=== PATIENT | female | born 1955 | race Caucasian/White ===

== ENCOUNTER 2016-10-23 23:45 | Emergency (ER) | payer OTHER ==
[~2016-10-23] VITALS: Ht 165.1 cm; Wt 84.8 kg
[~2016-10-23 23:45] MED LIST: HYDR-971 PO; IBUP800T19 PO; NAPR500T3 PO; VALA500T PO
[2016-10-24] MEDS ORDERED: KETOROLAC 15 MG/ML VIAL. IV ONE (01:00)
[2016-10-24] MEDS ORDERED: HYDROmorphone PF 1 MG/ML DISP.SYRIN IV ONE (01:00)
[2016-10-24] MEDS ORDERED: IV NORMAL SALINE 1,000ML 1,000 ML IV ONE (01:00)
[2016-10-24] MEDS ORDERED: ONDANSETRON PF 4 MG/2 ML VIAL. IV ONE (01:00)
--- NOTE | 2016-10-24 01:29 | RAD ---
INDICATION: Abdomen pain. COMPARISON: None TECHNIQUE: Axial CT images obtained through the abdomen and pelvis. Intravenous contrast was not utilized. One or more of the following individualized dose reduction techniques were utilized for this examination: 1. Automated exposure control; 2. Adjustment of the mA and/or kV according to patient size; 3. Use of iterative reconstruction technique. FINDINGS: Elevated left hemidiaphragm. Abdominal aorta not aneurysmal. Mild calcific atherosclerosis. No intrahepatic bile duct dilation. No peripancreatic edema. Spleen unremarkable. No hydronephrosis. Lobulated appearance of left kidney. No definite evidence of small bowel obstruction. Bladder unremarkable within limits of CT. Colonic diverticulosis. There is a region of lack of distension of the colon near splenic flexure with prominence of wall. Appendix not well seen. Degenerative changes spine. Grade 1 anterolisthesis of L4 on 5. IMPRESSION: No evidence of bowel obstruction or hydronephrosis. There is a region of lack of distension of the colon near splenic flexure as well as descending colon. Could be secondary to lack of distention but given the possible regional wall thickening near splenic flexure may be helpful to obtain a follow-up examination to ensure that this does not increase to exclude a pathologic cause of wall thickening such as colitis, stricture or lesion in the area. Elevated left hemidiaphragm. Electronically signed by: Clayton Barragan (October 24, 2016 01:27:25)
[2016-10-24 01:54] LABS: BASO % 1 % (0-3); EOS # 0.1 x10^3/uL (0.0-0.7); EOS % 1 % (0-3); HEMATOCRIT 43.1 % (36.0-47.0); HEMOGLOBIN 14.5 g/dL (12.0-15.5); LYMPH % 12 % (24-48); MEAN CORPUSCULAR HEMOGLOBIN 30 pg (25-35); MEAN CORPUSCULAR HGB CONC 34 g/dL (31-37); MEAN CORPUSCULAR VOLUME 90 fL (79-100); MONO # 0.4 x10^3/uL (0.0-1.1); MONO % 4 % (0-9); NEUT # 6.7 x10^3uL (1.8-7.7); NEUT % 82 % (31-73); PLATELET COUNT 214 x10^3/uL (140-400); RED BLOOD COUNT 4.79 x10^6/uL (3.50-5.40); WHITE BLOOD COUNT 8.1 x10^3/uL (4.0-11.0)
[2016-10-24 02:18] LABS: BILIRUBIN,URINE NEG (NEG); CLARITY,URINE HAZY; COLOR,URINE YELLOW; GLUCOSE,URINE NEG (NEG)
[2016-10-24 02:19] LABS: BACTERIA,URINE MANY /HPF (0-FEW); NITRITE,URINE NEG (NEG); SQUAMOUS EPITHELIAL CELL,UR FEW /LPF; UROBILINOGEN,URINE 0.2 mg/dL (0.2 mg/dL)
[2016-10-24 02:53] LABS: ALBUMIN 4.3 g/dL (3.4-5.0); ALBUMIN/GLOBULIN RATIO 1.3 (1.0-1.7); CALCIUM 9.5 mg/dL (8.5-10.1); GFR 56.4; POTASSIUM 3.9 mmol/L (3.5-5.1); TOTAL BILIRUBIN 0.3 mg/dL (0.2-1.0); TOTAL PROTEIN 7.5 g/dL (6.4-8.2)
[2016-10-24] MEDS ORDERED: HYDR-971 PO (03:04)
[2016-10-24] MEDS ORDERED: ONDA4TAB10 SL (03:04)
--- NOTE | 2016-10-24 03:04 | PHYS DOC ---
Past History Past Medical History: Other Past Surgical History: Hysterectomy, Tonsillectomy, Other Alcohol Use: Occasionally Drug Use: None Adult General Chief Complaint Chief Complaint: ABDOMINAL PAIN HPI HPI Patient is a 61-year-old female who presents here today complaining of right flank and right lower quadrant pain that started earlier this evening. Patient reports that it started on slightly and over the course of the evening is been getting worse and worse to the point now where she is unable to tolerated. Patient denies any a dysuria frequency urgency. Denies any fevers shakes chills. Denies any cough cold runny nose. Patient denies any chest pain or shortness of breath. Patient denies any hematuria. Patient denies any diarrhea. Patient reports that she feels nauseous and has thrown up with the pain. Patient reports she is unable to sit still with the pain. Never had any kidney stones in the past. Patient's physical exam is significant for tenderness to palpation to her right flank and right lower quadrant. Patient had no rebound or guarding. Patient has no psoas or obturator signs. Patient does not present with any signs or symptoms of be consistent with an acute surgical abdomen. Patient's ER workup was significant for labs were unremarkable. Patient had a normal CBC and chemistry. Patient's UA was unremarkable. Patient had a CT scan of her abdomen and pelvis looking for kidney stones patient's CT scan of her abdomen and pelvis did not show any acute pathology. There was no evidence of bowel obstruction or hydronephrosis. There is a region of lack of distention of the colon and splenic flexure as well as the descending colon. This could be secondary to lack of distention but given the possible regional wall thickening of the splenic flexure may be helpful to obtain a follow-up examination to ensure that does not increase to exclude a pathologic cause of wall thickening such as colitis stricture or lesion the area. Assessment and plan Abdominal pain of unclear etiology. Patient had an unremarkable CT scan. The results of the CT scan were discussed with the patient and the recommendation a repeat CT scan as an outpatient through her primary care physician was discussed with her. Patient is currently feeling much more comfortable. Patient be discharged home with antiemetics and pain medicines to assist her and she will see her family doctor within the week. Review of Systems Review of Systems Constitutional: Denies fever or chills [] Eyes: Denies change in visual acuity, redness, or eye pain [] HENT: Denies nasal congestion or sore throat [] All other review systems are negative except as documented in the history of present illness portion. Current Medications Current Medications Current Medications Medications (Trade) Dose Ordered Sig/[place] Start Time Stop Time Status Last Admin Dose Admin Hydromorphone HCl (Dilaudid) 1 mg 1X ONCE 10/24/16 01:00 10/24/16 01:01 DC 10/24/16 01:10 1 MG Ketorolac Tromethamine (Toradol) 15 mg 1X ONCE 10/24/16 01:00 10/24/16 01:01 DC 10/24/16 01:11 15 MG Ondansetron HCl (Zofran) 4 mg 1X ONCE 10/24/16 01:00 10/24/16 01:01 DC 10/24/16 01:10 4 MG Sodium Chloride 1,000 ml @ 1,000 mls/hr 1X ONCE 10/24/16 01:00 10/24/16 01:59 DC 10/24/16 01:11 1,000 MLS/HR Allergies Allergies Allergies Coded Allergies Type Severity Reaction Last Updated Verified No Known Drug Allergies 04/08/15 No Physical Exam Physical Exam Constitutional: Well developed, well nourished, no acute distress, non-toxic appearance. [] HENT: Normocephalic, atraumatic, bilateral external ears normal, oropharynx moist, no oral exudates, nose normal. [] Eyes: PERRLA, EOMI, conjunctiva normal, no discharge. [] Neck: Normal range of motion, no tenderness, supple, no stridor. [] Cardiovascular:Heart rate regular rhythm, no murmur [] Lungs & Thorax: Bilateral breath sounds clear to auscultation [] Abdomen: Bowel sounds normal, soft, tenderness to palpation her right flank as well as right lower quadrant. No rebound or guarding. No masses, no pulsatile masses. [] Skin: Warm, dry, no erythema, no rash. [] Back: See above Extremities: No tenderness, no cyanosis, no clubbing, ROM intact, no edema. [] Neurologic: Alert and oriented X 3, normal motor function, normal sensory function, no focal deficits noted. [] Psychologic: Affect normal, judgement normal, mood normal. [] Current Patient Data Vital Signs Vital Signs Date Time Temp Pulse Resp B/P (MAP) Pulse Ox O2 Delivery O2 Flow Rate FiO2 10/23/16 23:50 97.5 58 20 99 Room Air Lab Results Laboratory Tests Test 10/24/16 01:10 White Blood Count 8.1 x10^3/uL Red Blood Count 4.79 x10^6/uL Hemoglobin 14.5 g/dL Hematocrit 43.1 % Mean Corpuscular Volume 90 fL Mean Corpuscular Hemoglobin 30 pg Mean Corpuscular Hemoglobin Concent 34 g/dL Red Cell Distribution Width 14.0 % Platelet Count 214 x10^3/uL Neutrophils (%) (Auto) 82 % Lymphocytes (%) (Auto) 12 % Monocytes (%) (Auto) 4 % Eosinophils (%) (Auto) 1 % Basophils (%) (Auto) 1 % Neutrophils # (Auto) 6.7 x10^3uL Lymphocytes # (Auto) 1.0 x10^3/uL Monocytes # (Auto) 0.4 x10^3/uL Eosinophils # (Auto) 0.1 x10^3/uL Basophils # (Auto) 0.0 x10^3/uL Urine Collection Type Unknown Urine Color Yellow Urine Clarity Hazy Urine pH 6.0 Urine Specific [place] 1.025 Urine Protein Neg Urine Glucose (UA) Neg mg/dL Urine Ketones (Stick) Neg mg/dL Urine Blood Trace Urine Nitrite Neg Urine Bilirubin Neg Urine Urobilinogen Dipstick 0.2 mg/dL Urine Leukocyte Esterase Neg Urine RBC 1-2 /HPF Urine WBC 1-4 /HPF Urine Squamous Epithelial Cells Few /LPF Urine Transitional Epithelial Cells Few /LPF Urine Bacteria Many /HPF Urine Mucus Slight /LPF Sodium Level 143 mmol/L Potassium Level 3.9 mmol/L Chloride Level 106 mmol/L Carbon Dioxide Level 25 mmol/L Anion Gap 12 Blood Urea Nitrogen 12 mg/dL Creatinine 1.0 mg/dL Estimated GFR (Cockcroft-Gault) 56.4 BUN/Creatinine Ratio 12 Glucose Level 136 mg/dL Calcium Level 9.5 mg/dL Total Bilirubin 0.3 mg/dL Aspartate Amino Transf (AST/SGOT) 23 U/L Alanine Aminotransferase (ALT/SGPT) 35 U/L Alkaline Phosphatase 71 U/L Total Protein 7.5 g/dL Albumin 4.3 g/dL Albumin/Globulin Ratio 1.3 Lipase 121 U/L Current Medications Medications (Trade) Dose Ordered Sig/[place] Route PRN Reason Start Time Stop Time Status Last Admin Dose Admin Sodium Chloride 1,000 ml @ 1,000 mls/hr 1X ONCE IV 10/24/16 01:00 10/24/16 01:59 DC 10/24/16 01:11 1,000 MLS/HR Ondansetron HCl (Zofran) 4 mg 1X ONCE IV 10/24/16 01:00 10/24/16 01:01 DC 10/24/16 01:10 4 MG Hydromorphone HCl (Dilaudid) 1 mg 1X ONCE IV 10/24/16 01:00 10/24/16 01:01 DC 10/24/16 01:10 1 MG Ketorolac Tromethamine (Toradol) 15 mg 1X ONCE IV 10/24/16 01:00 10/24/16 01:01 DC 10/24/16 01:11 15 MG Laboratory Tests Test 10/24/16 01:10 White Blood Count 8.1 x10^3/uL (4.0-11.0) Red Blood Count 4.79 x10^6/uL (3.50-5.40) Hemoglobin 14.5 g/dL (12.0-15.5) Hematocrit 43.1 % (36.0-47.0) Mean Corpuscular Volume 90 fL (79-100) Mean Corpuscular Hemoglobin 30 pg (25-35) Mean Corpuscular Hemoglobin Concent 34 g/dL (31-37) Red Cell Distribution Width 14.0 % (11.5-14.5) Platelet Count 214 x10^3/uL (140-400) Neutrophils (%) (Auto) 82 % (31-73) H Lymphocytes (%) (Auto) 12 % (24-48) L Monocytes (%) (Auto) 4 % (0-9) Eosinophils (%) (Auto) 1 % (0-3) Basophils (%) (Auto) 1 % (0-3) Neutrophils # (Auto) 6.7 x10^3uL (1.8-7.7) Lymphocytes # (Auto) 1.0 x10^3/uL (1.0-4.8) Monocytes # (Auto) 0.4 x10^3/uL (0.0-1.1) Eosinophils # (Auto) 0.1 x10^3/uL (0.0-0.7) Basophils # (Auto) 0.0 x10^3/uL (0.0-0.2) Urine Collection Type Unknown Urine Color Yellow Urine Clarity Hazy Urine pH 6.0 Urine Specific [place] 1.025 Urine Protein Neg (NEG-TRACE) Urine Glucose (UA) Neg mg/dL (NEG) Urine Ketones (Stick) Neg mg/dL (NEG) Urine Blood Trace (NEG) Urine Nitrite Neg (NEG) Urine Bilirubin Neg (NEG) Urine Urobilinogen Dipstick 0.2 mg/dL (0.2 mg/dL) Urine Leukocyte Esterase Neg (NEG) Urine RBC 1-2 /HPF (0-2) Urine WBC 1-4 /HPF (0-4) Urine Squamous Epithelial Cells Few /LPF Urine Transitional Epithelial Cells Few /LPF Urine Bacteria Many /HPF (0-FEW) Urine Mucus Slight /LPF Sodium Level 143 mmol/L (136-145) Potassium Level 3.9 mmol/L (3.5-5.1) Chloride Level 106 mmol/L (98-107) Carbon Dioxide Level 25 mmol/L (21-32) Anion Gap 12 (6-14) Blood Urea Nitrogen 12 mg/dL (7-20) Creatinine 1.0 mg/dL (0.6-1.0) Estimated GFR (Cockcroft-Gault) 56.4 BUN/Creatinine Ratio 12 (6-20) Glucose Level 136 mg/dL (70-99) H Calcium Level 9.5 mg/dL (8.5-10.1) Total Bilirubin 0.3 mg/dL (0.2-1.0) Aspartate Amino Transferase (AST) 23 U/L (15-37) Alanine Aminotransferase (ALT) 35 U/L (14-59) Alkaline Phosphatase 71 U/L (46-116) Total Protein 7.5 g/dL (6.4-8.2) Albumin 4.3 g/dL (3.4-5.0) Albumin/Globulin Ratio 1.3 (1.0-1.7) Lipase 121 U/L (73-393) EKG EKG [] Radiology/Procedures Radiology/Procedures [] Course & Med Decision Making Course & Med Decision Making Pertinent Labs and Imaging studies reviewed. (See chart for details) [] Dragon Disclaimer Dragon Disclaimer This chart was dictated in whole or in part using Voice Recognition software in a busy, high-work load, and often noisy Emergency Department environment. It may contain unintended and wholly unrecognized errors or omissions. Departure Departure: Impression: Primary Impression: Abdominal pain Disposition: 01 HOME, SELF-CARE Condition: IMPROVED Referrals: EVELYNE MCCALL DO (PCP) Patient Instructions: Abdominal Pain (Nonspecific) Additional Instructions: Please follow up with her family doctor for possible repeat CAT scan if your symptoms do not resolve. Scripts Ondansetron (ZOFRAN ODT) 4 Mg Tab.rapdis 1 TAB SL Q8HRS for NAUSEA, #15 TAB Prov: MIRIAM BARNARD MD 10/24/16 Hydrocodone Bit/Acetaminophen (NORCO 5-325 TABLET) 1 Each Tablet 1 TAB PO PRN Q6HRS Y for PAIN, #12 TAB 0 Refills Prov: MIRIAM BARNARD MD 10/24/16 MIRIAM BARNARD MD October 24, 2016 03:04
[2016-10-24] MEDS ORDERED: HYDROcodone/APAP 5/325MG 1 TAB TABLET PO ONE (03:30)
[2016-10-24 03:45] VITALS: BP 137/76
== END 2016-10-24 04:12 | disposition home or self-care (01) ==
LOC: ER 23:45
DX: R10.31 Right lower quadrant pain (principal); Z90.710 Acquired absence of both cervix and uterus
CPT/HCPCS: 36415; 74176; 80053; 81001; 83690; 85027; 87086; 96361; 96374; 96375; 99285; J1170; J1885; J2405; 87186; J7030

== ENCOUNTER 2017-07-07 10:40 | Emergency (ER) | payer OTHER ==
[~2017-07-07] VITALS: Ht 165.1 cm; Wt 78.5 kg
[~2017-07-07 10:40] MED LIST changes: -NAPR500T3 PO; +NAPR500T4 PO; +ONDA4TAB10 SL
[2017-07-07 11:27] LABS: BASO % 1 % (0-3); EOS % 1 % (0-3); HEMATOCRIT 27.6 % (36.0-47.0); HEMOGLOBIN 9.3 g/dL (12.0-15.5); LYMPH # 1.8 x10^3/uL (1.0-4.8); LYMPH % 26 % (24-48); MEAN CORPUSCULAR HEMOGLOBIN 30 pg (25-35); MEAN CORPUSCULAR HGB CONC 34 g/dL (31-37); MEAN CORPUSCULAR VOLUME 89 fL (79-100); MONO # 0.3 x10^3/uL (0.0-1.1); MONO % 4 % (0-9); NEUT # 4.8 x10^3uL (1.8-7.7); NEUT % 69 % (31-73); PLATELET COUNT 250 x10^3/uL (140-400); RED BLOOD COUNT 3.08 x10^6/uL (3.50-5.40); RED CELL DISTRIBUTION WIDTH 13.1 % (11.5-14.5); WHITE BLOOD COUNT 6.9 x10^3/uL (4.0-11.0)
[2017-07-07 11:32] LABS: ALBUMIN 3.3 g/dL (3.4-5.0); ALBUMIN/GLOBULIN RATIO 1.1 (1.0-1.7); TOTAL PROTEIN 6.2 g/dL (6.4-8.2)
[2017-07-07 11:33] LABS: CALCIUM 8.7 mg/dL (8.5-10.1); CREATININE 0.8 mg/dL (0.6-1.0); GFR 72.9; POTASSIUM 4.2 mmol/L (3.5-5.1); TOTAL BILIRUBIN 0.1 mg/dL (0.2-1.0)
[2017-07-07] MEDS: IV NORMAL SALINE 1,000ML 1,000 ML IV ONE (11:49)
[2017-07-07] MEDS: ONDANSETRON PF 4 MG/2 ML VIAL. IV ONE ×2 (11:53→14:13)
[2017-07-07 11:55] LABS: FECAL OB PT POSITIVE (NEG)
--- NOTE | 2017-07-07 12:27 | RAD ---
Single view chest 07/07/2017 Clinical indication: GI bleed. Comparison: None. Findings: Mild elevation of the left hemidiaphragm. Cardiac and mediastinal silhouettes are unremarkable. No pleural effusion, pneumothorax or focal consolidation. Impression: 1. No acute cardiopulmonary abnormality. 2. Mild elevation of the left hemidiaphragm.
--- NOTE | 2017-07-07 12:28 | PHYS DOC ---
Past History Past Medical History: Other Past Surgical History: Hysterectomy, Tonsillectomy, Other Alcohol Use: Occasionally Drug Use: None Adult General Chief Complaint Chief Complaint: BLOODY STOOL HPI HPI Patient is a 61-year-old female who presents here today secondary to generalized weakness, nausea, dark stools 1-2 days. Patient reports that she has felt like she has not passed out multiple times over the last several days. Patient denies any recent fevers shakes chills cough cold rhinorrhea. Patient is complaining of nausea with some midepigastric abdominal discomfort. Patient has any diarrhea. Patient reports that she's had dark-colored stools times several days. Patient reports she has a family history significant for colorectal cancer. Patient denies any dysuria frequency or urgency. Patient reports decreased by mouth intake over the last several days. Patient has no history significant for hypertension diabetes lung liver or kidney problems. Patient reports that she was seen and evaluated in the hospital approximately one year ago for abdominal pain. During that time period she has seen Dr. Gomes and had plan to do a colonoscopy on her and EgD if she continued to have symptoms of abdominal pain. Review of systems: Constitutional: Denies fever or chills Eyes: Denies change in visual acuity, redness, or eye pain HENT: Denies nasal congestion or sore throat Respiratory: Denies cough or shortness of breath All other systems were reviewed and found to be within normal limits, except as documented in this note. Physical exam: Constitutional: Well developed, well nourished, no acute distress, non-toxic appearance. HENT: Normocephalic, atraumatic, bilateral external ears normal, nose normal. Eyes: EOMI, conjunctiva pale no discharge. Neck: Normal range of motion, no tenderness, supple, no stridor. Cardiovascular: Heart tachycardic Lungs & Thorax: Bilateral breath sounds clear to auscultation Abdomen: Mild midepigastric discomfort to palpation Skin: Warm, dry, no erythema, no rash. Back: Normal spinal curvature Extremities: No tenderness, no cyanosis, no clubbing, ROM intact, no edema. Neurologic: Alert and oriented X 3, normal motor function, normal sensory function, no focal deficits noted. Psychologic: Affect normal, judgement normal, mood normal. Rectal: Occult heme-positive dark stool Patient's ER physical exam was most remarkable: The above EKG as interpreted by ER physician reveals: Sinus tach with nonspecific ST-T wave abnormalities Chest x-ray as interpreted by ER physician reveals: Labs reviewed: Anemia Assessment and plan: 1. 61-year-old female who presents to the ER today secondary to generalized malaise and weakness with several near syncopal episodes today. Patient was found to have heme positive stool, midepigastric pain, and anemia on her labs. Patient's hemoglobin was 9. given the patient's anemia which appears to be new for the patient and her symptoms of dizziness and GI bleed patiently to be admitted for further evaluation. We obtain a CBC, CMP, INR x-ray EKG and type and screen. I discussed the case with Dr. Sloan who agrees the plan to transfer patient to [facility] for admission under the hospital service for further evaluation of her symptoms and bleeding. Patient this time is clinically hemodynamically stable and is improving with the antiemetics as well as the fluids that she has received. Patient is stable for transfer to [facility] for further management and treatment of her condition. Current Medications Current Medications Current Medications Medications (Trade) Dose Ordered Sig/[place] Start Time Stop Time Status Last Admin Dose Admin Ondansetron HCl (Zofran) 4 mg 1X ONCE 07/07/17 11:45 07/07/17 11:53 DC 07/07/17 11:53 4 MG Sodium Chloride 1,000 ml @ 1,000 mls/hr 1X ONCE 07/07/17 11:45 07/07/17 12:44 07/07/17 11:49 1,000 MLS/HR Allergies Allergies Allergies Coded Allergies Type Severity Reaction Last Updated Verified No Known Drug Allergies 04/08/15 No Current Patient Data Lab Results Laboratory Tests Test 07/07/17 11:00 07/07/17 11:40 White Blood Count 6.9 x10^3/uL (4.0-11.0) Red Blood Count 3.08 x10^6/uL (3.50-5.40) L Hemoglobin 9.3 g/dL (12.0-15.5) L Hematocrit 27.6 % (36.0-47.0) L Mean Corpuscular Volume 89 fL (79-100) Mean Corpuscular Hemoglobin 30 pg (25-35) Mean Corpuscular Hemoglobin Concent 34 g/dL (31-37) Red Cell Distribution Width 13.1 % (11.5-14.5) Platelet Count 250 x10^3/uL (140-400) Neutrophils (%) (Auto) 69 % (31-73) Lymphocytes (%) (Auto) 26 % (24-48) Monocytes (%) (Auto) 4 % (0-9) Eosinophils (%) (Auto) 1 % (0-3) Basophils (%) (Auto) 1 % (0-3) Neutrophils # (Auto) 4.8 x10^3uL (1.8-7.7) Lymphocytes # (Auto) 1.8 x10^3/uL (1.0-4.8) Monocytes # (Auto) 0.3 x10^3/uL (0.0-1.1) Eosinophils # (Auto) 0.0 x10^3/uL (0.0-0.7) Basophils # (Auto) 0.0 x10^3/uL (0.0-0.2) Prothrombin Time 9.9 SEC (9.4-11.4) Prothrombin Time INR 1.0 (0.9-1.1) Sodium Level 141 mmol/L (136-145) Potassium Level 4.2 mmol/L (3.5-5.1) Chloride Level 108 mmol/L (98-107) H Carbon Dioxide Level 24 mmol/L (21-32) Anion Gap 9 (6-14) Blood Urea Nitrogen 46 mg/dL (7-20) H Creatinine 0.8 mg/dL (0.6-1.0) Estimated GFR (Cockcroft-Gault) 72.9 BUN/Creatinine Ratio 58 (6-20) H Glucose Level 121 mg/dL (70-99) H Calcium Level 8.7 mg/dL (8.5-10.1) Total Bilirubin 0.1 mg/dL (0.2-1.0) L Aspartate Amino Transferase (AST) 15 U/L (15-37) Alanine Aminotransferase (ALT) 22 U/L (14-59) Alkaline Phosphatase 63 U/L (46-116) Total Protein 6.2 g/dL (6.4-8.2) L Albumin 3.3 g/dL (3.4-5.0) L Albumin/Globulin Ratio 1.1 (1.0-1.7) Stool Occult Blood Positive (NEG) EKG EKG [] Radiology/Procedures Radiology/Procedures [] Course & Med Decision Making Course & Med Decision Making Pertinent Labs and Imaging studies reviewed. (See chart for details) [] Dragon Disclaimer Dragon Disclaimer This electronic medical record was generated, in whole or in part, using a voice recognition dictation system. Departure Departure: Impression: Primary Impression: Anemia Additional Impressions: GI bleed Abdominal pain Nausea Disposition: 05 XFER OTHER (to [facility] service of ) Condition: GUARDED Referrals: EVELYNE MCCALL DO (PCP) Problem Qualifiers MIRIAM BARNARD MD Jul 07, 2017 12:28
--- NOTE | 2017-07-07 13:25 | EKG ---
[address] [address] Test Date: 2017-07-07 Test Time: 12:35:43 Pat Name: DES FISHER Department: Room: Gender: F [employer]: : 1955 Requested By: MIRIAM BARNARD Order Number: [id number] Reading MD: Glen Gifford MD Measurements Intervals [place] Rate: 71 P: 33 MI: 146 QRS: 36 QRSD: 88 T: 51 QT: 394 QTc: 428 Interpretive Statements SINUS RHYTHM Electronically Signed On 07-12-2017 16:43:50 TIP STRETCHER by Glen Gifford MD
[2017-07-07 13:27] VITALS: BP 134/92
[2017-07-07 13:40] LABS: BACTERIA,URINE FEW /HPF (0-FEW); BILIRUBIN,URINE NEG (NEG); CLARITY,URINE HAZY; COLOR,URINE YELLOW; GLUCOSE,URINE NEG (NEG); NITRITE,URINE NEG (NEG); RBC,URINE RARE /HPF (0-2); SQUAMOUS EPITHELIAL CELL,UR OCC /LPF; UROBILINOGEN,URINE 0.2 mg/dL (0.2 mg/dL)
== END 2017-07-07 14:00 | disposition short-term general hospital (02) ==
LOC: ER 10:40
DX: D64.9 Anemia, unspecified (principal); K92.2 Gastrointestinal hemorrhage, unspecified; Z90.710 Acquired absence of both cervix and uterus
CPT/HCPCS: 36415; 71045; 80053; 81001; 82274; 85025; 85610; 86850; 86900; 86901; 87086; 93005; 96361; 96374; 96376; 99285; J2405; J7030

== ENCOUNTER 2020-03-07 15:27 | Emergency (ER) | payer OTHER ==
[~2020-03-07] VITALS: Ht 165.1 cm; Wt 97.7 kg
[~2020-03-07 15:27] MED LIST changes: +HYDR-3165 PO; -HYDR-971 PO; +NAPR-514 PO; -NAPR500T4 PO; -VALA500T PO; +VALA500T9 PO
[2020-03-07 15:39] VITALS: BP 118/94
[2020-03-07] MEDS ORDERED: ONDANSETRON PF 4 MG/2 ML VIAL. ONE (15:42)
[2020-03-07] MEDS ORDERED: IV NORMAL SALINE 1,000ML 1,000 ML IV ONE (15:45)
[2020-03-07] MEDS ORDERED: ONDANSETRON PF 4 MG/2 ML VIAL. IVP ONE (15:45)
--- NOTE | 2020-03-07 15:49 | PHYS DOC ---
Past History Past Medical History: Hypertension, Other Past Surgical History: Hysterectomy, Tonsillectomy, Other Alcohol Use: None Drug Use: None General Adult EDM: Chief Complaint: NAUSEA/VOMITING/DIARRHEA HPI: HPI: Patient is a 64-year-old female who has been sick for the last 6 days. Patient was diagnosed with COVID 5 days ago. Patient had a fever at the beginning but not the last several days. Patient has had a cough that is improving and denies shortness of breath. Patient has had extreme nausea fatigue muscle weakness and muscle pain that is worsening. Patient has had a few episodes of vomiting and she started Z-Almas a couple days ago and has had some diarrhea since then. Patient denies any abdominal pain. Review of Systems: Review of Systems: Constitutional: Denies current fever Eyes: Denies change in visual acuity HENT: Denies nasal congestion or sore throat Respiratory: Denies shortness of breath but has had mild cough Cardiovascular: Denies chest pain or edema GI: Complains of nausea vomiting diarrhea but no abdominal pain : Denies dysuria Musculoskeletal: Complains of diffuse myalgias Integument: Denies rash Neurologic: Denies headache, focal weakness or sensory changes Endocrine: Denies polyuria or polydipsia Lymphatic: Denies swollen glands Psychiatric: Denies depression or anxiety Heart Score: Risk Factors: Risk Factors: DM, Current or recent (<one month) smoker, HTN, HLP, family history of CAD, obesity. Risk Scores: Score 0 - 3: 2.5% MACE over next 6 weeks - Discharge Home Score 4 - 6: 20.3% MACE over next 6 weeks - Admit for Clinical Observation Score 7 - 10: 72.7% MACE over next 6 weeks - Early Invasive Strategies Current Medications: Current Meds: Current Medications Medications (Trade) Dose Ordered Sig/Glenna Start Time Stop Time Status Last Admin Dose Admin Ondansetron HCl (Zofran) 4 mg STK-MED ONCE 03/07/20 15:42 03/07/20 15:43 DC Allergies: Allergies: Allergies Coded Allergies Type Severity Reaction Last Updated Verified No Known Drug Allergies 04/08/15 No Physical Exam: PE: Constitutional: Well developed, well nourished, no acute distress, non-toxic appearance. [] HENT: Normocephalic, atraumatic, bilateral external ears normal, no trismus, nose normal. [] Eyes: PERRLA, EOMI, conjunctiva normal, no discharge. [] Neck: Normal range of motion, no tenderness, supple, no stridor. [] No meningeal signs Cardiovascular:Heart rate regular rhythm, peripheral pulses intact cap refill brisk Lungs & Thorax: Diminished breath sounds bilaterally Abdomen: Abdomen soft nontender no guarding or rebound no pulsatile masses no masses Skin: Warm, dry, no erythema, no rash. [] Back: No tenderness, no CVA tenderness. [] Extremities: No tenderness, no cyanosis, no clubbing, ROM intact, no edema. [] Neurologic: Alert and oriented X 3, normal motor function, normal sensory function, no focal deficits noted. [] Psychologic: Affect normal, judgement normal, mood normal. [] Current Patient Data: Labs: Laboratory Tests Test 03/07/20 15:43 White Blood Count 4.9 x10^3/uL Red Blood Count 5.29 x10^6/uL Hemoglobin 15.5 g/dL Hematocrit 46.4 % Mean Corpuscular Volume 88 fL Mean Corpuscular Hemoglobin 29 pg Mean Corpuscular Hemoglobin Concent 33 g/dL Red Cell Distribution Width 13.7 % Platelet Count 194 x10^3/uL Neutrophils (%) (Auto) 71 % Lymphocytes (%) (Auto) 20 % Monocytes (%) (Auto) 9 % Eosinophils (%) (Auto) 0 % Basophils (%) (Auto) 1 % Neutrophils # (Auto) 3.4 x10^3uL Lymphocytes # (Auto) 1.0 x10^3/uL Monocytes # (Auto) 0.4 x10^3/uL Eosinophils # (Auto) 0.0 x10^3/uL Basophils # (Auto) 0.0 x10^3/uL Urine Collection Type Unknown Urine Color Yellow Urine Clarity Clear Urine pH 7.0 Urine Specific Williams 1.020 Urine Protein Trace Urine Glucose (UA) Neg mg/dL Urine Ketones (Stick) 40 mg/dL Urine Blood Trace Urine Nitrite Neg Urine Bilirubin Neg Urine Urobilinogen Dipstick 1.0 mg/dL Urine Leukocyte Esterase Neg Urine RBC 3-5 /HPF Urine WBC Rare /HPF Urine Squamous Epithelial Cells Mod /LPF Urine Bacteria 0 /HPF Sodium Level 135 mmol/L Potassium Level 2.9 mmol/L Chloride Level 96 mmol/L Carbon Dioxide Level 28 mmol/L Anion Gap 11 Blood Urea Nitrogen 12 mg/dL Creatinine 1.2 mg/dL Estimated GFR (Cockcroft-Gault) 45.2 BUN/Creatinine Ratio 10 Glucose Level 118 mg/dL Calcium Level 9.5 mg/dL Total Bilirubin 0.6 mg/dL Aspartate Amino Transf (AST/SGOT) 33 U/L Alanine Aminotransferase (ALT/SGPT) 34 U/L Alkaline Phosphatase 62 U/L Creatine Kinase 42 U/L Total Protein 7.6 g/dL Albumin 4.0 g/dL Albumin/Globulin Ratio 1.1 Lipase 85 U/L Current Medications Medications (Trade) Dose Ordered Sig/Glenna Route PRN Reason Start Time Stop Time Status Last Admin Dose Admin Ondansetron HCl (Zofran) 4 mg STK-MED ONCE .ROUTE 03/07/20 15:42 03/07/20 15:43 DC Ondansetron HCl (Zofran) 4 mg 1X ONCE IVP 03/07/20 15:45 03/07/20 15:49 DC 03/07/20 15:50 Sodium Chloride 1,000 ml @ 1,000 mls/hr 1X ONCE IV 03/07/20 15:45 03/07/20 16:44 DC 03/07/20 15:50 Potassium Chloride (Klor-Con) 40 meq 1X ONCE PO 03/07/20 17:15 03/07/20 17:16 DC 03/07/20 17:16 Potassium Chloride (Klor-Con) 20 meq STK-MED ONCE PO 03/07/20 17:11 03/07/20 17:12 DC Vital Signs: Vital Signs Date Time Temp Pulse Resp B/P (MAP) Pulse Ox O2 Delivery O2 Flow Rate FiO2 03/07/20 15:39 98.8 89 18 118/94 (102) 94 EKG: EKG: [] EKG interpreted by me normal sinus rhythm with rate of 93 left axis deviation nonspecific ST changes QTC of 493 Radiology/Procedures: Radiology/Procedures: [][address] [address] IMAGING REPORT Signed PATIENT: DES FISHER ACCOUNT: [id number] : 1955 LOCATION: ER AGE: 64 SEX: F EXAM STATUS: REG ER ORD. PHYSICIAN: AURELIA AGUIAR MD REASON: Covid, short of air PROCEDURE: PORTABLE CHEST 1V PORTABLE CHEST 1V Clinical Indication: Reason: Covid, short of air / Comparison: AP chest July 07, 2017. Findings: The cardiomediastinal silhouette is normal. There is severe elevation of left hemidiaphragm, increased from prior study. No acute airspace disease is seen. There is no pneumothorax. No pleural effusion is appreciated. No acute bone abnormality. IMPRESSION: 1. No acute cardiopulmonary process. 2. Severe elevation of left hemidiaphragm, increased from prior study. Electronically signed by: Shane Kamara MD (03/07/2020 4:08 PM) [facility] DICTATED AND SIGNED BY: SHANE KAMARA MD DATE: 03/07/20 1608 CC: EVELYNE MCCALL DO; AURELIA AGUIAR MD ~ Course & Med Decision Making: Course & Med Decision Making Pertinent Labs and Imaging studies reviewed. (See chart for details) [] 64-year-old female presents with signs symptoms of COVID-19. Patient has h ypokalemia on her laboratory evaluation. Chest x-ray shows a elevated left hemidiaphragm but no focal infiltrate. Patient will be hydrated in ER. Patient denies any shortness of breath and oxygen level is satisfactory. Patient stable for discharge outpatient follow-up return precautions given. Dragon Disclaimer: Jr Disclaimer: This electronic medical record was generated, in whole or in part, using a voice recognition dictation system. Departure Departure: Impression: Primary Impression: COVID-19 Additional Impressions: Dehydration Hypokalemia Disposition: 01 HOME/RESIDENCE PRIOR TO ADM Condition: STABLE Referrals: EVELYNE MCCALL DO (PCP) 2-3 days Patient Instructions: Hypokalemia, Nausea and Vomiting Additional Instructions: You have been tested for or diagnosed with COVID-19. It is an infection caused by a new type of coronavirus. COVID-19 will cause cold-like or mild flu symptoms in most. It can cause more severe symptoms like problems breathing in some. There is no treatment for COVID-19. The body will clear the infection over time. Self-care will help to ease discomfort. Steps to Take: Self-Care Rest as needed. Healthy habits may help you feel better. Steps include: Choose healthy foods including fruits and vegetables. Drink water throughout the day. Get plenty of sleep each night. If you smoke, try to quit. It may ease breathing. Avoid alcohol. Keep Others Healthy The virus can spread to others. Droplets are released every time you sneeze or cough. The droplets can get into the mouth, nose, or eyes of people near you and lead to infection. To lower the chances of spreading COVID-19 to others: Stay at home until your doctor has said it is safe to leave. If you tested positive this will mean staying isolated until both of the following are true: At least 7 days have passed since the start of illness. You are free of fever for at least 72 hours without the use of medicine. During this time: - Avoid public areas, events, or transportation. Do not return to work or school until your doctor has said it is safe to do so. - Call ahead if you need to go to a medical center. Let them know you may have COVID-19. It will help them guide you where to go. They may also ask you to wear a facemask when you come to the office. - If you call for emergency medical services, let them know you may have COVID- 19. While at home: - Try to avoid close contact with others. Stay about 6 feet away. - If possible, spend most of your time in a separate room from others. - Use a face mask if you will be in close contact with others such as sharing a room or vehicle. - Have someone wipe down common surfaces in the home. Use household photo finish photographer every day on areas like doorknobs, counters, or sinks. - Cough or sneeze into a tissue. Throw the tissue away right after use. If a tissue is not available, cough or sneeze into your elbow. - Wash your hands often. Wash them after sneezing or coughing. Use soap and water and wash for at least 20 seconds. Alcohol based hand pipe cleaner can be used if soap and water is not available. - Do not prepare food for others. Avoid sharing personal items like forks, spoons, or toothbrushes. - Avoid close contact with pets while you are sick. There is no evidence of the virus passing to pets. This is a safety step until more is known about this virus. Isolation can be frustrating. Social interaction can help. Keep in touch with friends and family through phone and tech options. You can still interact with others in your home, just keep a safe distance of about 6 feet. Follow-up: Your doctors office will check in with you to see if there are any changes in your health. You may be asked to keep track of symptoms to share with them. They will also let you know when you are clear to be in public again. Problems to Look Out For: Contact your doctor if your recovery is not going as you expect. Get emergency care if you have problems such as: - Trouble breathing - Nonstop chest pain or pressure - Changes in awareness, confusion, or problems waking - Lips or face have bluish color - Worsening of symptoms If you think you have an emergency, call for emergency medical services right away. As taken from [facility] EMERGENCY DEPARTMENT GENERAL DISCHARGE INSTRUCTIONS THANK YOU for coming to [facility] Emergency Department (ED) today and trusting us with your care. We trust that you had a positive experience in our Emergency Department. If you wish to speak to the department Management you can contact the emergency department at YOUR FOLLOW UP INSTRUCTIONS ARE FOLLOWS: Do you have a private doctor? If you do not have a private doctor, please ask for a resource list of physicians or clinics that may be able to assist you with follow up care. The Emergency Physician has interpreted your x-rays. The X-ray specialist will also review them. If there is a change in the findings you will be notified in 48 hours when at all possible. A lab test or lab culture may have been done, your results will be reviewed and you will be notified if you need a change in treatment. ADDITIONAL INSTRUCTIONS AND INFORMATION Your care today has been supervised by a physician who is specially trained in emergency care. Many problems require more than one evaluation for a complete diagnosis and treatment. We recommend that you schedule your follow up appointment as recommended to ensure complete treatment of your illness or injury. If you are unable to obtain follow up care and continue to have a problem, or if your condition worsens we recommend that you return to the ED. We are not able to safely determine your condition over the phone nor are we able to give sound medical advice over the phone. For these safety reasons, if you call for medical advice we will ask you to come to the ED for further evaluation If you have any questions regarding these discharge instructions please call the ED at . SAFETY INFORMATION In the interest of safety, wellness, and injury prevention; we encourage you to wear your seatbelt, if you smoke; quit smoking, and we encourage your family to use protective helmet for bicycling and other sporting events that present an increased risk for head injury. IF YOUR SYMPTOMS WORSEN OR NEW SYMPTOMS DEVELOP, OR YOU HAVE CONCERNS ABOUT YOUR CONDITION; OR IF YOUR CONDITION WORSENS WHILE YOU ARE WAITING FOR YOUR FOLLOW UP APPOINTMENT; EITHER CONTACT YOUR PRIMARY CARE DOCTOR, THE PHYSICIAN WHOSE NAME AND NUMBER YOU WERE GIVEN, OR RETURN TO THE ED IMMEDIATELY. Scripts Promethazine Hcl (PROMETHAZINE HCL) 25 Mg Supp.rect 2-Jun SUPP RC Q6-8HRS PRN for NAUSEA for 3 Days, #12 SUPP 0 Refills Prov: AURELIA AGUIAR MD 03/07/20 Justification of Admission: Justification of Admission: Justification of Admission Dx: N/A AURELIA AGUIAR MD Mar 07, 2020 15:49
[2020-03-07 16:08] LABS: BASO % 1 % (0-3); EOS % 0 % (0-3); HEMATOCRIT 46.4 % (36.0-47.0); HEMOGLOBIN 15.5 g/dL (12.0-15.5); LYMPH % 20 % (24-48); MEAN CORPUSCULAR HEMOGLOBIN 29 pg (25-35); MEAN CORPUSCULAR HGB CONC 33 g/dL (31-37); MEAN CORPUSCULAR VOLUME 88 fL (79-100); MONO # 0.4 x10^3/uL (0.0-1.1); MONO % 9 % (0-9); NEUT # 3.4 x10^3uL (1.8-7.7); NEUT % 71 % (31-73); PLATELET COUNT 194 x10^3/uL (140-400); RED BLOOD COUNT 5.29 x10^6/uL (3.50-5.40); RED CELL DISTRIBUTION WIDTH 13.7 % (11.5-14.5); WHITE BLOOD COUNT 4.9 x10^3/uL (4.0-11.0)
--- NOTE | 2020-03-07 16:11 | RAD ---
PORTABLE CHEST 1V Clinical Indication: Reason: Covid, short of air / Comparison: AP chest July 07, 2017. Findings: The cardiomediastinal silhouette is normal. There is severe elevation of left hemidiaphragm, increased from prior study. No acute airspace disease is seen. There is no pneumothorax. No pleural effusion is appreciated. No acute bone abnormality. IMPRESSION: 1. No acute cardiopulmonary process. 2. Severe elevation of left hemidiaphragm, increased from prior study. Electronically signed by: Shane Kamara MD (03/07/2020 4:08 PM) [facility]
[2020-03-07 16:23] LABS: ALBUMIN/GLOBULIN RATIO 1.1 (1.0-1.7); CALCIUM 9.5 mg/dL (8.5-10.1); CREATININE 1.2 mg/dL (0.6-1.0); GFR 45.2; TOTAL BILIRUBIN 0.6 mg/dL (0.2-1.0); TOTAL PROTEIN 7.6 g/dL (6.4-8.2)
[2020-03-07 16:25] LABS: POTASSIUM 2.9 mmol/L (3.5-5.1)
[2020-03-07 16:29] LABS: BILIRUBIN,URINE NEG (NEG); CLARITY,URINE CLEAR; COLOR,URINE YELLOW; GLUCOSE,URINE NEG (NEG)
[2020-03-07 16:30] LABS: BACTERIA,URINE 0 /HPF (0-FEW); NITRITE,URINE NEG (NEG); SQUAMOUS EPITHELIAL CELL,UR MOD /LPF; WBC,URINE RARE /HPF (0-4)
[2020-03-07] MEDS ORDERED: POTASSIUM CHLORIDE 20 MEQ TABLET.ER. PO ONE ×2 (17:11→17:15)
[2020-03-07] MEDS ORDERED: PROM25SU33 RC (17:22)
== END 2020-03-07 17:40 | disposition home or self-care (01) ==
LOC: ER 15:27
DX: U07.1 COVID-19 (principal); E86.0 Dehydration; E87.6 Hypokalemia; I10 Essential (primary) hypertension
CPT/HCPCS: 36415; 71045; 80053; 81001; 82550; 83690; 85025; 96361; 96374; 99284; J2405; J7030

== ENCOUNTER → 2021-05-06 | Outpatient (CLI) | payer MEDICARE, OTHER ==
[~2021-05-06] MED LIST changes: +PROM25SU33 RC
--- NOTE | 2021-05-06 09:07 | RAD ---
Right upper quadrant abdominal ultrasound 05/06/2021 INDICATION: Right upper quadrant pain Discussion: Ultrasound evaluation of the abdomen was performed. Static images are submitted to PACS. The pancreas is not visualized secondary to overlying gas filled bowel. Visualized portions of the IV C are unremarkable. The liver is normal in size measuring 15.5 cm longitudinally. Liver is essentiall y isoechoic with respect to the right kidney. Portal venous flows in the normal direction. Shadowing stones noted within the gallbladder lumen. The gallbladder wall is non thickened. No pericholecystic fluid is identified. The right kidney is normal in appearance measuring 10.2 cm in length. Common clare e duct is nondilated at 3 mm. IMPRESSION: 1. Cholelithiasis without sonographic evidence of acute cholecystitis Electronically signed by: Adolfo Mendiola MD (05/06/2021 9:04 AM) [id number]
[2021-05-06 09:35] LABS: BASO # 0.1 x10^3/uL (0.0-0.2); BASO % 1 % (0-3); EOS # 0.1 x10^3/uL (0.0-0.7); EOS % 2 % (0-3); HEMATOCRIT 46.2 % (36.0-47.0); HEMOGLOBIN 15.6 g/dL (12.0-15.5); LYMPH # 1.2 x10^3/uL (1.0-4.8); LYMPH % 21 % (24-48); MEAN CORPUSCULAR HEMOGLOBIN 30 pg (25-35); MEAN CORPUSCULAR HGB CONC 34 g/dL (31-37); MEAN CORPUSCULAR VOLUME 90 fL (79-100); MONO # 0.5 x10^3/uL (0.0-1.1); MONO % 8 % (0-9); NEUT % 68 % (31-73); PLATELET COUNT 271 x10^3/uL (140-400); RED BLOOD COUNT 5.15 x10^6/uL (3.50-5.40); RED CELL DISTRIBUTION WIDTH 14.8 % (11.5-14.5); WHITE BLOOD COUNT 5.9 x10^3/uL (4.0-11.0)
[2021-05-06 09:57] LABS: ALBUMIN/GLOBULIN RATIO 1.1 (1.0-1.7); CALCIUM 9.4 mg/dL (8.5-10.1); GFR 55.6; POTASSIUM 3.7 mmol/L (3.5-5.1); TOTAL BILIRUBIN 0.6 mg/dL (0.2-1.0); TOTAL PROTEIN 7.6 g/dL (6.4-8.2)
== END ==
LOC: US 08:14
PROVIDERS: ATTEND Family Medicine
DX: K80.20 Calculus of gallbladder without cholecystitis without obstruction (principal); R11.0 Nausea; R19.8 Other specified symptoms and signs involving the digestive system and abdomen
CPT/HCPCS: 36415; 76705; 80053; 83690; 85025